=== PATIENT | male | born 1950 | race Caucasian/White ===

== ENCOUNTER 2018-01-16 19:47 | Inpatient (IN) ==
[2018-01-16] MEDS ORDERED: NS 1,000 ML IV ONE ×2 (20:06→23:16)
--- NOTE | 2018-01-16 20:10 | Emergency Department Report ---
General Adult HPI - General Chief complaint: Upper Respiratory Infection Stated complaint: breathing problems Time Seen by Provider: 01/16/18 20:00 Source: patient, EMS Mode of arrival: EMS Limitations: altered mental status - History of Present Illness HPI narrative: Mr Jacobs is a 68 year old male sent to ER from [place]. He is vague in describing why he is here. Report from EMS/nurses indicate fever, soa and cough. EMS reported temp of 102.3. He was saturating [facility] the [facility]s at the [facility]. He has hx COPD and wears o2 prn. Given an inhaled treatment at the [place]. Sats 88% on 02 in triage. Blood sugar 109 by EMS. At time of initial examination, patient is pleasant but confused. He screams out with staff interventions. Reevaluation done in the presence of patient's IRWIN Vasquez. Patient appears less confused and more appropriate. MD complaint: soa Onset (ago): day(s) (1) Relieving factors: none Exacerbating factors: none Associated symptoms: cough, fever/chills, shortness of breath Treatments prior to arrival: other (albuterol inhaler) - Related Data Home Medications Medication Instructions Recorded Confirmed Albuterol Sulfate 1 vial AEROSOL Q4H PRN #0 11/24/16 01/16/18 Acetaminophen [Pain Reliever] 500 mg PO Q6HR PRN 01/16/18 01/16/18 Acetaminophen [Tylenol] 1,000 mg PO Q6HR PRN 01/16/18 01/16/18 Albuterol HFA Inhaler [Ventolin 2 puff ORAL INH Q4HR PRN 01/16/18 01/16/18 Hfa 90 mcg/actuation] Aspirin [Pickaway Aspirin] 81 mg PO DAILY 01/16/18 01/16/18 Calcium Carbonate [Calcium] 1 tab PO BID 01/16/18 01/16/18 Citalopram [Celexa] 30 mg PO DAILY 01/16/18 01/16/18 Eucerin Cream [Eucerin] 1 applicatio TP BID PRN 01/16/18 01/16/18 Fluticasone/Salmeterol 250/50 1 puff INH BID PRN 01/16/18 01/16/18 [Advair 250-50 Diskus] Lisinopril [Prinivil] 10 mg PO DAILY 01/16/18 01/16/18 Loratadine [Claritin] 10 mg PO DAILY 01/16/18 01/16/18 Propylene Glycol [Lubricant Eye 1 drop EACH EYE Q4HR PRN 01/16/18 01/16/18 Drops] guaiFENesin [Mucinex] 600 mg PO BID 01/16/18 01/16/18 Allergies Allergy/AdvReac Type Severity Reaction Status Date / Time aspirin Allergy Unknown Verified 01/16/18 20:05 Review of Systems All systems: reviewed and negative except as stated Constitutional: Reports: fever ENT: Reports: congestion Cardiovascular: Denies: chest pain Respiratory: Reports: cough, dyspnea Gastrointestinal: Reports: nausea Integumentary: Reports: lesions (nasal) PFSH Patient Stated Medical History Dementia Yes Hypertension Yes - Social History Smoking status: Former smoker Substance use type: does not use Housing: [facility] Physical Exam - Limitations Limitations: altered mental status - General General appearance: alert, in distress (mild) - Head Head exam: atraumatic, normocephalic - Eye Eye exam: Present: normal appearance, PERRL. Absent: scleral icterus, conjunctival injection - ENT ENT exam: Present: mucous membranes dry - Expanded ENT Exam Nose exam: Present: other (chronic appearing lesions to nose) - Neck Neck exam: Present: normal inspection, full ROM - Chest Chest inspection: Present: normal inspection, symmetric chest wall rise - Respiratory Respiratory exam: Present: wheezes, crackles - Cardiovascular Cardiovascular exam: Present: tachycardia - Abdominal Exam Abdominal exam: Present: soft, normal bowel sounds. Absent: distention, tenderness, guarding, rebound, rigidity - Expanded Lower Extremity Exam bilateral Lower leg exam: Present: swelling - Skin Skin exam: Present: warm, dry - Neurological Exam Neurological exam: Present: alert - Expanded Neurological Exam Patient oriented to: Present: person, place - Psychiatric Psychiatric exam: Present: normal mood, other (some confusion) Course Course Narrative: NS 1 liter given initially. Looking at CXR noted some fluid in fissures. Will add BNP and decide if additional fluids necessary. Vanco 1 gm IV initiated. Call to Dr. Lovett for admit-he will place orders. - Consultations Consultation #1: Dr. Acosta Time: 22:32 (admit sepsis/hcap, add bnp and procal) Vital Signs Temperature 99.6 F 01/16/18 19:56 Pulse Rate 115 H 01/16/18 19:56 Respiratory Rate 20 01/16/18 19:56 Blood Pressure 134/67 01/16/18 19:56 Pulse Oximetry 93 01/16/18 19:56 Temperature 99.6 F 01/16/18 19:56 Pulse Rate 100 01/16/18 22:20 Respiratory Rate 20 01/16/18 22:20 Blood Pressure 123/59 01/16/18 22:20 Pulse Oximetry 91 01/16/18 22:20 Medical Decision Making - Differential Diagnosis HCAP, UTI, Influenza - Medical Records Medical records reviewed: Yes: I reviewed the patient's medical records. Hx COPD with chronic resp insufficiency, hx recent sepsis approx 1.5 mo ago admitted here. - Lab Data Result diagrams: 01/16/18 20:52 01/16/18 20:52 Lab Results 01/16/18 01/16/18 01/16/18 Range/Units 20:17 20:52 20:52 WBC 18.1 H (4.5-11.0) T/MM3 RBC 4.27 L (4.50-5.90) M/MM3 Hgb 13.3 L (13.5-17.5) GM/DL Hct 39.3 L (41-53) % MCV 92.0 (80-100) UM3 MCH 31.1 (26-34) UUG MCHC 33.8 (31-37) GM/DL RDW Std Deviation 47.2 (36.9-50.2) FL Plt Count 317 (130-400) T/MM3 MPV 9.6 (9.4-12.4) UM3 Immature Gran % (Auto) Not performed Neut % (Auto) Not performed Lymph % (Auto) Not performed [place] % (Auto) Not performed Eos % (Auto) Not performed Baso % (Auto) Not performed Neut # (Auto) Not performed Lymph # (Auto) Not performed [place] # (Auto) Not performed Eos # (Auto) Not performed Baso # (Auto) Not performed Abs Immat Gran (auto) Not performed Neutrophils % (Manual) 85.0 H (33-66) % Lymphocytes % (Manual) 8.0 L (23-45) % Monocytes % (Manual) 6.0 (0-9.0) % Eosinophils % (Manual) 1.0 (0-4) % Neutrophils # (Manual) 15.4 H (1.8-7.7) T/MM3 Lymphocytes # (Manual) 1.4 (1-4.8) T/MM3 Monocytes # (Manual) 1.1 H (0-0.8) T/MM3 Eosinophils # (Manual) 0.2 (0-0.5) T/MM3 RBC Morph Comment Normal Turbidity < 20 (0-20) Sodium 135 (134-144) MEQ/L Potassium 4.8 (3.6-5) MEQ/L Chloride 97 L (98-107) MEQ/L Carbon Dioxide 24 (22-30) MEQ/L Anion Gap 14 (5-15) MEQ/L BUN 16.0 (9-20) MG/DL Creatinine 1.3 (0.8-1.5) mg/dL GFR Calculation 55 BUN/Creatinine Ratio 12 (6-26) RATIO Glucose 130 H (75-110) MG/DL Calculated Osmolality 263 (261-280) MOSM/KG Calcium 9.4 (8.4-10.2) MG/DL Total Bilirubin 0.50 (0.20-1.30) MG/DL Icterus Index < 2 (0-7) AST 21 (17-59) U/L ALT 15 (1-50) U/L Alkaline Phosphatase 58 (38-126) U/L Total Protein 7.4 (6.3-8.2) g/dL Albumin 4.0 (3.5-5.0) g/dL Globulin 3.4 (2.4-3.6) G/DL Albumin/Globulin Ratio 1.2 (1.1-2.2) RATIO Plasma Lactate 2.4 H (0.6-2.2) MMOL/L Specimen Hemolysis < 15 (0-25) Ur Collection Type Urine Color (YELLOW) Urine Clarity Urine pH (5.0-8.0) Ur Specific [place] (1.015-1.025) Urine Protein (NEGATIVE) Urine Glucose (UA) (NEGATIVE) Urine Ketones (NEGATIVE) Urine Occult Blood (NEGATIVE) Urine Nitrate (NEGATIVE) Urine Bilirubin (NEGATIVE) Urine Urobilinogen (NORMAL) EU/DL Ur Leukocyte Esterase (NEGATIVE) Urinalysis Comment Adenovirus (PCR) Negative (Negative) B.parapertussis DNA PCR Negative (Negative) C. pneumoniae DNA (PCR) Negative (Negative) Coronavirus OC43 (PCR) Negative (Negative) Coronavirus HKU1 (PCR) Negative (Negative) Coronavirus 229E (PCR) Negative (Negative) Coronavirus NL63 (PCR) Negative (Negative) Human Metapneumovir PCR Negative (Negative) Influenza Type A (PCR) Negative (Negative) Influenza Type B (PCR) Negative (Negative) M. pneumoniae (PCR) Negative (Negative) Parainfluenza 1 (PCR) Negative (Negative) Parainfluenza 2 (PCR) Negative (Negative) Parainfluenza 3 (PCR) Negative (Negative) Parainfluenza 4 (PCR) Negative (Negative) RSV (PCR) Negative (Negative) Entero/Rhino (PCR) Negative (Negative) 01/16/18 Range/Units 22:31 WBC (4.5-11.0) T/MM3 RBC (4.50-5.90) M/MM3 Hgb (13.5-17.5) GM/DL Hct (41-53) % MCV (80-100) UM3 MCH (26-34) UUG MCHC (31-37) GM/DL RDW Std Deviation (36.9-50.2) FL Plt Count (130-400) T/MM3 MPV (9.4-12.4) UM3 Immature Gran % (Auto) Neut % (Auto) Lymph % (Auto) [place] % (Auto) Eos % (Auto) Baso % (Auto) Neut # (Auto) Lymph # (Auto) [place] # (Auto) Eos # (Auto) Baso # (Auto) Abs Immat Gran (auto) Neutrophils % (Manual) (33-66) % Lymphocytes % (Manual) (23-45) % Monocytes % (Manual) (0-9.0) % Eosinophils % (Manual) (0-4) % Neutrophils # (Manual) (1.8-7.7) T/MM3 Lymphocytes # (Manual) (1-4.8) T/MM3 Monocytes # (Manual) (0-0.8) T/MM3 Eosinophils # (Manual) (0-0.5) T/MM3 RBC Morph Comment Turbidity (0-20) Sodium (134-144) MEQ/L Potassium (3.6-5) MEQ/L Chloride (98-107) MEQ/L Carbon Dioxide (22-30) MEQ/L Anion Gap (5-15) MEQ/L BUN (9-20) MG/DL Creatinine (0.8-1.5) mg/dL GFR Calculation BUN/Creatinine Ratio (6-26) RATIO Glucose (75-110) MG/DL Calculated Osmolality (261-280) MOSM/KG Calcium (8.4-10.2) MG/DL Total Bilirubin (0.20-1.30) MG/DL Icterus Index (0-7) AST (17-59) U/L ALT (1-50) U/L Alkaline Phosphatase (38-126) U/L Total Protein (6.3-8.2) g/dL Albumin (3.5-5.0) g/dL Globulin (2.4-3.6) G/DL Albumin/Globulin Ratio (1.1-2.2) RATIO Plasma Lactate (0.6-2.2) MMOL/L Specimen Hemolysis (0-25) Ur Collection Type Urine, void-cc/notcc Urine Color Yellow (YELLOW) Urine Clarity Clear Urine pH 6.0 (5.0-8.0) Ur Specific [place] 1.015 (1.015-1.025) Urine Protein Negative (NEGATIVE) Urine Glucose (UA) Negative (NEGATIVE) Urine Ketones Trace A (NEGATIVE) Urine Occult Blood Trace-lysed (NEGATIVE) Urine Nitrate Negative (NEGATIVE) Urine Bilirubin Negative (NEGATIVE) Urine Urobilinogen 0.2 (NORMAL) EU/DL Ur Leukocyte Esterase Negative (NEGATIVE) Urinalysis Comment Microscopic not ind. Adenovirus (PCR) (Negative) B.parapertussis DNA PCR (Negative) C. pneumoniae DNA (PCR) (Negative) Coronavirus OC43 (PCR) (Negative) Coronavirus HKU1 (PCR) (Negative) Coronavirus 229E (PCR) (Negative) Coronavirus NL63 (PCR) (Negative) Human Metapneumovir PCR (Negative) Influenza Type A (PCR) (Negative) Influenza Type B (PCR) (Negative) M. pneumoniae (PCR) (Negative) Parainfluenza 1 (PCR) (Negative) Parainfluenza 2 (PCR) (Negative) Parainfluenza 3 (PCR) (Negative) Parainfluenza 4 (PCR) (Negative) RSV (PCR) (Negative) Entero/Rhino (PCR) (Negative) - Radiology Data Radiology results reviewed: Yes: I reviewed the patient's radiology results. bilateral pulmonary infiltrates Disposition Clinical Impression: HCAP (healthcare-associated pneumonia), Sepsis [place]position: 02 [place] [facility] [place] Condition: Stable Prescriptions: No Action Albuterol HFA Inhaler [Ventolin Hfa 90 mcg/actuation] 2 puff ORAL INH Q4HR PRN PRN Reason: Shortness Of Air/Wheezing Loratadine [Claritin] 10 mg PO DAILY Lisinopril [Prinivil] 10 mg PO DAILY Aspirin [Pickaway Aspirin] 81 mg PO DAILY Fluticasone/Salmeterol 250/50 [Advair 250-50 Diskus] 1 puff INH BID PRN PRN Reason: Shortness Of Air/Wheezing Calcium Carbonate [Calcium] 1 tab PO BID Eucerin Cream [Eucerin] 1 applicatio TP BID PRN PRN Reason: Prn Orders guaiFENesin [Mucinex] 600 mg PO BID Acetaminophen [Tylenol] 1,000 mg PO Q6HR PRN PRN Reason: Pain Albuterol Sulfate 1 vial AEROSOL Q4H PRN #0 PRN Reason: Shortness Of Air Citalopram [Celexa] 30 mg PO DAILY Acetaminophen [Pain Reliever] 500 mg PO Q6HR PRN PRN Reason: Pain Propylene Glycol [Lubricant Eye Drops] 1 drop EACH EYE Q4HR PRN PRN Reason: Dry Eyes Referrals: Obi Kapoor MD [Family Provider] - - Seen By: midlevel
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
--- OUTSIDE RECORDS SUMMARY | 2018-01-16 20:20 | External Medical Summary | Referral Summary ---
:1950 Author Organization [facility] [address] [place] [address] Care Team Providers Name Role Phone Obi Kapoor Primary Care Physician Encounter VC Date(s): 12/20/16 - 12/20/16 [facility] [address] [place] [address] [place] Discharge Diagnosis: Pneumonia Discharge Diagnosis: COPD, severe Discharge Disposition: 01-Home or Self Care Attending Physician: Obi Kapoor MD Admitting Physician: Obi Kapoor MD Vital Signs Most recent to oldest [Reference Range]: 1 Peripheral Pulse Rate [60-100 bpm] 88 bpm (12/20/16 10:49 AM) Respiratory Rate [14-20 br/min] 18 br/min (12/20/16 10:49 AM) Blood Pressure [90-140/60-90 mmHg] 100/64 mmHg (12/20/16 10:49 AM) SpO2 92 % (12/20/16 10:49 AM) Problem List Condition Effective Dates Status Health Status Informant Anemia(Confirmed) Active History of alcohol Active dependence(Confirmed) Impaired gas exchange(Confirmed)1 Resolved Ineffective airway Resolved clearance(Confirmed)2 Irregular heart beat(Confirmed) Active Obesity(Confirmed) Active patient COPD, severe(Confirmed) Active Tobacco user(Confirmed) Active patient 1Problem added automatically by system based on initiation of Impaired Gas Exchange Plan of [id number] added automatically by system based on initiation of Ineffective Airway Clearance Plan of Care Allergies, Adverse Reactions, Alerts Substance Reaction Severity Status aspirin Active Medications Advair Diskus 250 mcg-50 mcg inhalation powder 1 puffs, Inhalation, BID, # 60 Each, 0 Refill(s), other reason (Rx) Start Date: 11/12/14 Status: Orderedalbuterol 1.25 mg/3 mL (0.042%) inhalation solution 1.25 mg 3 mL, NEB, q4hr, as needed, # 540 mL, 0 Refill(s), Pharmacy: [facility], 3 mL NEB q4hr,PRN:as needed Start Date: 11/28/16 Status: Orderedaspirin 81 mg, Oral, Daily, 0 Refill(s) Start Date: 12/20/16 Status: Orderedcalcium carbonate See Instructions, 500 mg Oral BID, 0 Refill(s) Start Date: 07/06/15 Status: Orderedcitalopram 20 mg oral tablet 20 mg 1 tabs, Oral, Daily, # 90 tabs, 0 Refill(s) Start Date: 03/10/16 Status: OrderedClaritin 10 mg oral tablet 10 mg 1 tabs, Oral, Daily, as needed for allergy symptoms, 0 Refill(s) Start Date: 03/10/16 Status: OrderedMucinex 600 mg, Oral, q12hr, as needed for cold symptoms, 0 Refill(s) Start Date: 07/13/16 Status: OrderedPrinivil 10 mg, Oral, Daily, 0 Refill(s) Start Date: 12/20/16 Status: OrderedRefresh drops, Eye-Both, BID, as needed for dry eyes, 0 Refill(s) Start Date: 03/10/16 Status: OrderedSudoGest 30 mg oral tablet 30 mg 1 tabs, Oral, Daily, FAX TO SAMY DENYS @ ., # 31 tabs , 3 Refill(s) Start Date: 09/18/16 Status: OrderedTAO - topical ointment ANGEL LUIS - topical ointment, Topical, BID, 0 Refill(s), Indication: lesion - nose Start Date: 10/02/16 Status: Orderedthiamine 100 mg oral tablet mg tabs, Oral, Daily, 0 Refill(s) Start Date: 03/10/16 Status: OrderedTylenol Regular Strength 325 mg, Oral, q4hr, as needed for pain, 0 Refill(s) Start Date: 03/10/16 Status: OrderedVentolin HFA 90 mcg/inh inhalation aerosol 2 puffs, Inhalation, q4hr, as needed for wheezing, # 18 g, 0 Refill(s), other reason (Rx) Start Date: 11/12/14 Status: Ordered Results No data available for this section Immunizations No data available for this section Procedures Procedure Date Related Diagnosis Body Site Excision of multiple skin lesions1 02/10/15 Excision of squamous cell carcinoma2 02/10/15 Full thickness skin graft to head or neck3 02/10/15 Hernia, inguinal 1Actinic keratosis dorsum left hand with primary [id number] side of the nose, dorsum of the right hand.3To left side of the nose after excision squamous cell carcinoma. Social History Social History Type Response Smoking Status Former smoker; Type: Cigarettes; Tobacco use per day: Pack; Number of years: 501 1DC: Assessment and Plan Extracted from: Title: Office Visit Note Author: Obi Kapoor MD Date: 12/20/16 Assessment/Plan 1.Pneumonia,Pneumonia Repeat chest x-ray today looks good no signs of residual pneumonia or other abnormalities. No further treatment needed. 2.COPD, severe Continue current treatment without change overall stable. Routine follow -up recommended.
--- OUTSIDE RECORDS SUMMARY | 2018-01-16 20:20 | External Medical Summary ---
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
--- OUTSIDE RECORDS SUMMARY | 2018-01-16 20:20 | External Medical Summary ---
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 Active Assessment Essential hypertension, benign 401.1 Active Problem Essential hypertension, benign 401.1 Active Problem COPD 496 Active Assessment 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, in remission Assessment Lichen planus 697.0 Active Assessment Unspecified deficiency anemia 281.9 Active Medications Medication Code Code Instructions Start End Status Dosage [place] [address]-32 108 (90 Base) Active 2 puffs as 82-20 MCG/ACT needed Inhalation every 4 hrs Stool Softener NDC 11822-94 100 MG Orally Active 1 capsule as 86-72 Once a day needed Furosemide NDC 71537-72 20 MG Orally April 22April Active 1 tablet 97-25 Twice a [place] 2012 [place] [address]-63 (2.5 MG/3ML) Active 3 ml Sulfate 90-52 0.083% Inhalation QID Advair Diskus NDC 55095-94 200/50 mcg Active 1 puff 97-00 Inhalation Twice a day Tylenol NDC 90493-08 Orally Active not defined Atenolol NDC 45530-38 25 MG Orally Active 1 tablet 87-01 Once a day Clobetasol NDC 24898-89 0.05 % Nov 28, Active 1 application Propionate 50-15 Externally Twice 2013 to affected a day area Pepto-Bismol NDC 89925-78 Orally Active prn 904 Procedures Procedure Coding System Code Date COMPREHENSIVE METABOLIC PANEL CPT-4 86774 Oct 26, 2014 HEMOGLOBIN A1C, IN HOUSE CPT-4 75000 Oct 26, 2014 COMPLETE CBC W/AUTO DIFF WBC CPT-4 85566 Oct 26, 2014 OFFICE VISIT, EST-MOD. COMPLEXITY (25 MIN) CPT-4 36441 Oct 26, 2014 URINALYSIS, IN HOUSE CPT-4 86524 Oct 26, 2014 Vital Signs Date/Time: Oct 26, 2014 Height 68 inches Weight 189.8 lbs Temperature 98.2 F Blood Pressure Diastolic 70 mm Hg Blood Pressure Systolic 128 mm Hg Cardiac Monitoring Heart Rate 74 Beats per Minute BMI 28.86 Index Oximetry 90 % Results Name Result Date Reference Range Unit In House HB A1c CBC With Platelet and Differential Summary Purpose eClinicalWorks Submission
--- OUTSIDE RECORDS SUMMARY | 2018-01-16 20:21 | External Medical Summary ---
[...] Problem COPD 496 Active Medications Medication Code System Code Instructions Start End Date Status Dosage Date Ventolin HFA [facility] 74948-953 108 (90 Base) 2 puffs as 2-20 MCG/ACT needed Inhalation every 4 [place] [address] 200/50 mcg 1 puff 5-00 Inhalation Twice a day Albuterol [facility] 25219-906 (2.5 MG/3ML) 3 ml Sulfate 0-52 0.083% Inhalation QID Procedures Procedure Coding System Code Date [facility] visit Established Patient CPT-4 G0467 January 06, 2015 [facility] visit Established Patient CPT-4 G0467 January 06, 2015 [facility] visit New Patient CPT-4 G0466 January 06, 2015 OFFICE VISIT, EST-MOD. COMPLEXITY (25 MIN) CPT-4 12216 January 06, 2015 Vital Signs Date/Time: January 06, 2015 Height 68 in Weight 181.0 lbs Temperature 97.7 F Blood Pressure Diastolic 76 mm Hg Blood Pressure Systolic 138 mm Hg Cardiac Monitoring Heart Rate 84 /min BMI 27.52 Index Respiratory Rate 28 /min Results No Known Results Summary Purpose eClinicalWorks Submission
[2018-01-16] MEDS ORDERED: ALBUTEROL/IPRATROPIUM 2.5mg-0.5mg/3ml NEB AEROSOL ONE (20:39)
[2018-01-16] MEDS: SALINE FLUSH 10ml SYRINGE IVF PRN (22:43)
[2018-01-16] MEDS ORDERED: ACETAMINOPHEN 325 MG TABLET PO PRN (23:32)
[2018-01-16] MEDS ORDERED: SENNA + DOCUSATE TABLET PO PRN (23:37)
[2018-01-16] MEDS ORDERED: ONDANSETRON 4 MG/2 ML INJECTION IVP PRN (23:37)
[2018-01-16] MEDS ORDERED: HYDROCODONE/APAP 5mg/325mg TABLET PO PRN (23:37)
[2018-01-16] MEDS ORDERED: REFRESH CLASSIC Eye Drops 0.4ml EACH EYE PRN (23:43)
[2018-01-16] MEDS ORDERED: ALBUTEROL 2.5mg/3ml (0.083%) NEB AEROSOL PRN (23:43)
[2018-01-16 23:57] VITALS: BMI 35.3
[2018-01-17] MEDS ORDERED: FALL RISK - PHARMACY CONSULT MC ONE (00:13)
[2018-01-17] MEDS ORDERED: ALBUTEROL 2.5mg/0.5ml (0.5%) NEB AEROSOL PRN (00:40)
[2018-01-17] MEDS ORDERED: ZOLPIDEM 5 MG TABLET PO PRN (01:28)
[2018-01-17] MEDS ORDERED: HALOPERIDOL 1 MG TABLET PO PRN (02:53)
--- NOTE | 2018-01-17 02:58 | History & Physical Report ---
History of Present Illness Date: 01/17/18 Chief complaint: Decreased appitite HPI: The pt is a resident at [facility] who was brought to the ER for hypoxia. The pt is pleasant and coroperative and states he doesn't know why he is in the hospital other that he didn't have an appetite today. He denies any SOB, cough, fevers, chills, N'V. pain. Review of Systems - Constitutional Constitutional: Present: as per HPI. Absent: chills, fever(s) - Cardiovascular Cardiovascular: Absent: chest pain - Respiratory Respiratory: Absent: cough, dyspnea - Gastrointestinal Gastrointestinal: Absent: nausea, vomiting Past Medical History Patient Stated Medical History Dementia Yes Hypertension Yes Family History Updates: none - Social History Smoking status: Former smoker Substance use type: does not use Alcohol intake: former Household members: caregiver Medications Home Medications Medication Instructions Recorded Confirmed Type Albuterol Sulfate 1 vial AEROSOL Q4H PRN #0 11/24/16 01/16/18 History Acetaminophen [Pain Reliever] 500 mg PO Q6HR PRN 01/16/18 01/16/18 History Acetaminophen [Tylenol] 1,000 mg PO Q6HR PRN 01/16/18 01/16/18 History Albuterol HFA Inhaler [Ventolin 2 puff ORAL INH Q4HR PRN 01/16/18 01/16/18 History Hfa 90 mcg/actuation] Aspirin [[place] Aspirin] 81 mg PO DAILY 01/16/18 01/16/18 History Calcium Carbonate [Calcium] 1 tab PO BID 01/16/18 01/16/18 History Citalopram [Celexa] 30 mg PO DAILY 01/16/18 01/16/18 History Eucerin Cream [Eucerin] 1 applicatio TP BID PRN 01/16/18 01/16/18 History Fluticasone/Salmeterol 250/50 1 puff INH BID PRN 01/16/18 01/16/18 History [Advair 250-50 Diskus] Lisinopril [Prinivil] 10 mg PO DAILY 01/16/18 01/16/18 History Loratadine [Claritin] 10 mg PO DAILY 01/16/18 01/16/18 History Propylene Glycol [Lubricant Eye 1 drop EACH EYE Q4HR PRN 01/16/18 01/16/18 History Drops] guaiFENesin [Mucinex] 600 mg PO BID 01/16/18 01/16/18 History Allergies Allergy/AdvReac Type Severity Reaction Status Date / Time aspirin Allergy Unknown Verified 01/16/18 20:05 Exam Vital Signs: Temperature 99.6 F 01/17/18 00:26 Pulse Rate 115 H 01/17/18 00:26 Respiratory Rate 24 01/17/18 02:03 Blood Pressure 139/67 01/16/18 23:58 Pulse Oximetry 96 01/17/18 02:03 Height/Weight/BMI: Height 1.7 m Weight 102.4 kg Body Mass Index 35.3 - Constitutional Present: no acute distress, obese - Routine HEENT Exam Head: Present: normocephalic - Routine Neck Exam Present: supple - Routine Respiratory Exam Present: CTA bilaterally - Routine Cardiovascular Exam Present: RRR, no murmur - Routine Abdominal Exam Present: soft, normoactive bowel sounds, non distended, non tender - Routine Extremities Exam Present: no edema Results - Labs CBC & Chem 7: 01/16/18 20:52 01/16/18 20:52 Assessment and Plan (1) Dementia arising in the senium and presenium Current visit: Yes Status: Acute (2) COPD (chronic obstructive pulmonary disease) Current visit: Yes Status: Acute (3) HCAP (healthcare-associated pneumonia) Current visit: Yes Status: Acute (4) Sepsis Current visit: Yes Status: Acute Assessment and Plan: will start the pt on empiric coverage for HCAP 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 zosyn, vanco, levoquin, breathing tx, cont home oxygen which is 2 llplm NC, monitor for fluid overload, hold diruretic, recheck LA, high risk for delirium - Physician Narrative Narrative: Date: 01/17/18 Time: 0255 Hospital Course Summary Disclaimer: The visit summary below is not to be considered part of the above Progress Note.
[2018-01-17] MEDS ORDERED: VANCOMYCIN - PHARMACY CONSULT MC ONE (02:59)
[2018-01-17] MEDS ORDERED: LEVOFLOXACIN PB 750 MG/150 ML BAG IV SCH (02:59)
[2018-01-17] MEDS ORDERED: PIPERACILLIN/TAZOBACTAM 3.375 GM in NS 100 ML IV SCH (02:59)
[2018-01-17] MEDS: NS FLUSH BAG 500ml IV PRN (03:22)
[2018-01-17] MEDS ORDERED: ALBUTEROL 2.5mg/3ml (0.083%) NEB AEROSOL PRN (06:45)
--- NOTE | 2018-01-17 07:33 | Pharmacy Consult-Antibiotics ---
Pharmacy Consult-Vancomycin - Laboratory Information WBC 26.1 T/MM3 (4.5-11.0) H* D 01/17/18 04:10 BUN 15.0 MG/DL (9-20) 01/17/18 04:10 Creatinine 1.1 mg/dL (0.8-1.5) D 01/17/18 04:10 Procalcitonin < 0.05 NG/ML 01/16/18 20:52 - Consult Information VANCOMYCIN CONSULT: Dx: Pneumonia JOANNA, 68 yo male, is a resident at [facility] who was brought to the ER for hypoxia. The pt is pleasant and coroperative and states he doesn't know why he is in the hospital other that he didn't have an appetite today. He denies any SOB, cough, fevers, chills, N'V. pain. His admitting diagnoses are HCAP and Sepsis. He has been started on Zosyn 3.375 g iv every 6 hours, Levaquin 750 mg iv every 24 hours, and Vancomycin. Current Renal Function: S Cr = 1.1 mg/dl. Calculated Cr Cl = 69mL/min. WBC's = 26.1 T/mm3 Lactate = 2.8 mmol/L @$-h Tmax = 99.4 degrees F The patient was given Vancomycin 1 g iv in the ED @ 2230 (01/16). I will continue Vancomycin @ 1,250 mg IV q12hrs (). The Pharmacy will continue to monitor and adjust regimen to maintain therapeutic levels. Thank you for the Vancomycin Dosing Consult, Eric Astudillo, Pharmacist. .
--- NOTE | 2018-01-17 08:05 | XRay Report ---
INDICATION: soa, fever PROCEDURE: CHEST 2-VIEWS UPRIGHT (PA & LAT) Encounter: Initial COMPARISON: November 24, 2016 FINDINGS: Hazy airspace opacities in both lower lobes, right greater than left. Upper lung ta are clear. No pleural effusion or pneumothorax. Heart size and mediastinal contours are stable. Pulmonary vascularity is normal. Impression: Lower lobe airspace disease could represent atelectasis or pneumonia. .
[2018-01-17] MEDS: GUAIFENESIN LA 600 MG TABLET PO SCH ×2 (09:27→20:10)
[2018-01-17] MEDS: CITALOPRAM 10 MG TABLET PO SCH (09:27)
[2018-01-17] MEDS: LISINOPRIL 10 MG TABLET PO SCH (09:27)
[2018-01-17] MEDS: ASPIRIN *EC* 81 MG TABLET PO SCH (09:28)
--- NOTE | 2018-01-17 09:28 | XRay Report ---
INDICATION: r/o pna/abnormal cxr 01/16 PROCEDURE: CHEST 2-VIEWS UPRIGHT (PA & LAT) Encounter: Initial COMPARISON: January 16, 2018 FINDINGS: Worsening airspace consolidation in the right lower lobe. Right upper lobe appears clear. Increased interstitial markings in the left base are stable and appear chronic. No pneumothorax or effusion. Heart size, mediastinal contours and pulmonary vascularity are stable. Impression: Worsening right lower lobe pneumonia. .
--- NOTE | 2018-01-17 09:49 | History & Physical Report ---
History of Present Illness Date: 01/17/18 HPI: Patient is a 68 year old male with history of COPD who presented to ED with reports of cough and shortness of breath with hypoxia. He has a history of dementia and history is difficult to obtain from patient. He does know that he lives at [facility] and that he felt ill. He states he felt very run down and like he didn't have any energy. History is largely obtained from chart as patient does not recall why exactly he is here other than not feeling well. Review of Systems Review of systems: Patient denies 10 point ROS other than feeling like he has no energy. However patient is confused this morning and is a poor historian. Past Medical History Patient Stated Medical History Dementia Yes Hypertension Yes Surgical History: unknown Family History Updates: Unknown-patient unable to give history - Social History Smoking status: Former smoker Social history: lives in [place] Medications Home Medications Medication Instructions Recorded Confirmed Type Albuterol Sulfate 1 vial AEROSOL Q4H PRN #0 11/24/16 01/16/18 History Acetaminophen [Pain Reliever] 500 mg PO Q6HR PRN 01/16/18 01/16/18 History Acetaminophen [Tylenol] 1,000 mg PO Q6HR PRN 01/16/18 01/16/18 History Albuterol HFA Inhaler [Ventolin 2 puff ORAL INH Q4HR PRN 01/16/18 01/16/18 History Hfa 90 mcg/actuation] Aspirin [Pisinemo Aspirin] 81 mg PO DAILY 01/16/18 01/16/18 History Calcium Carbonate [Calcium] 1 tab PO BID 01/16/18 01/16/18 History Citalopram [Celexa] 30 mg PO DAILY 01/16/18 01/16/18 History Eucerin Cream [Eucerin] 1 applicatio TP BID PRN 01/16/18 01/16/18 History Fluticasone/Salmeterol 250/50 1 puff INH BID PRN 01/16/18 01/16/18 History [Advair 250-50 Diskus] Lisinopril [Prinivil] 10 mg PO DAILY 01/16/18 01/16/18 History Loratadine [Claritin] 10 mg PO DAILY 01/16/18 01/16/18 History Propylene Glycol [Lubricant Eye 1 drop EACH EYE Q4HR PRN 01/16/18 01/16/18 History Drops] guaiFENesin [Mucinex] 600 mg PO BID 01/16/18 01/16/18 History Allergies Allergy/AdvReac Type Severity Reaction Status Date / Time aspirin Allergy Unknown Verified 01/16/18 20:05 Exam Vital Signs: Temperature 98.2 F 01/17/18 07:52 Pulse Rate 78 01/17/18 07:52 Respiratory Rate 18 01/17/18 07:52 Blood Pressure 106/67 01/17/18 07:52 Pulse Oximetry 91 01/17/18 07:52 Telemetry Rhythm: Sinus Rhythm Height/Weight/BMI: Height 5 ft 7 in Weight 100.8 kg Body Mass Index 35.3 - Constitutional Present: no acute distress, obese - Routine HEENT Exam Head: Present: normocephalic, atraumatic Eye: Present: EOMI, conjunctivae pink ENT: Present: mucous membranes moist - Routine Neck Exam Present: supple. Absent: JVD - Routine Chest/Breast/Axilla Exam Chest wall: Absent: tenderness - Routine Respiratory Exam Present: wheezes, diminished air movement. Absent: accessory muscle use - Routine Cardiovascular Exam Present: RRR, no murmur - Routine Abdominal Exam Present: soft, normoactive bowel sounds, non distended, non tender - Routine Extremities Exam Present: edema Comments: 1-2+ BLE - Routine Skin Exam Present: intact, dry, warm - Routine Neurological Exam Present: CN II-XII intact oriented to self and place, not oriented to time - Routine Psychiatric Exam Present: normal affect. Absent: anxious Results - Labs CBC & Chem 7: 01/17/18 04:10 01/17/18 04:10 Assessment and Plan (1) HCAP (healthcare-associated pneumonia) Current visit: Yes Status: Acute (2) Sepsis Current visit: Yes Status: Acute (3) Dementia arising in the senium and presenium Current visit: Yes Status: Acute (4) COPD (chronic obstructive pulmonary disease) Current visit: Yes Status: Acute Assessment and Plan: Assessment Sepsis 2/2 pneumonia-lactate elevated, leukocytosis RLL Pneumonia COPD exacerbation Dementia History of HTN Plan De escalate abx to 2 abx Obtain sputum culture Repeat CXR Trend lactate Begin steroids Repeat labs in am (CBC, electrolytes and procalc) RT consult Breathing treatments Continue oxygen as needed to maintain sats >90 Monitor BP closely, may need to hold lisinopril Speech therapy consult to rule out concerns for aspiration - Physician Narrative Narrative: Date: 01/17/18 Time: 09 Hospital Course Summary Disclaimer: The visit summary below is not to be considered part of the above Progress Note.
[2018-01-17] MEDS: PIPERACILLIN/TAZOBACTAM 3.375 GM in NS 50 ML IV SCH ×3 (09:51→22:16)
[2018-01-17] MEDS: PredniSONE 20 MG TABLET PO SCH (10:24)
[2018-01-18] MEDS: PIPERACILLIN/TAZOBACTAM 3.375 GM in NS 50 ML IV SCH ×4 (04:19→22:22)
[2018-01-18] MEDS: LORATADINE 10 MG TABLET PO SCH (06:23)
[2018-01-18] MEDS: GUAIFENESIN LA 600 MG TABLET PO SCH ×2 (08:57→20:52)
[2018-01-18] MEDS: LISINOPRIL 10 MG TABLET PO SCH (08:57)
[2018-01-18] MEDS: ASPIRIN *EC* 81 MG TABLET PO SCH (08:57)
[2018-01-18] MEDS: PredniSONE 20 MG TABLET PO SCH (08:57)
[2018-01-18] MEDS: CITALOPRAM 10 MG TABLET PO SCH (08:57)
[2018-01-18] MEDS ORDERED: ENOXAPARIN - PHARMACY CONSULT MC ONE (09:35)
--- NOTE | 2018-01-18 10:05 | Pharmacy Consult ---
Pharmacy Consult-Lovenox - Laboratory Information ENOXAPARIN CONSULT: Today's SCr = 1.1 mg/dl. Calculated CrCl = 70 mL/min. A consult was ordered for DVT prophylaxis using enoxaparin. Deep venous thrombosis, In patients with restricted mobility from acute illness ; Prophylaxis 40 mg subQ once daily for up to 14 days ([employer]). I am ordering enoxaparin 40 mg sq daily. Thanks for the Consult, Eric Astudillo, Pharmacist.
--- NOTE | 2018-01-18 11:00 | Progress Note ---
- Date 01/18/18 Subjective: F/U: sepsis secondary to pneumonia, COPD exacerbation, dementia. Mr. Jacobs is seen this morning while resting in bed. He is awake and denies any complaints or concerns. No chest pain, shortness of breath, abdominal pain , nausea, vomiting or dysuria. Nursing reports that overall, he has been doing well. His appetite is fair. No BM since admission. Leukocytosis improving ( WBC 19.8, down from 26.1). BMP unremarkable. Breathing stable at his baseline of 2-3L oxygen. Blood cultures remain negative x 1 day. Speech recommended further evaluation of questionable dysphagia with modified barium swallow which is pending. On exam, he is noted to have some increased swelling and redness to his left lower extremity as compared to his right. US doppler pending. Objective Vital signs: Temperature 97.5 F 01/18/18 00:00 Pulse Rate 64 01/18/18 08:52 Respiratory Rate 16 01/18/18 08:52 Blood Pressure 119/67 01/18/18 08:52 Pulse Oximetry 96 01/18/18 08:52 Height/Weight/BMI: Height 5 ft 7 in Weight 222 lb 3.615 oz Body Mass Index 35.3 Comments: Resting in bed, breathing easily on baseline 2L NC. - Constitutional Present: no acute distress, well nourished, well developed, obese, cooperative - Routine HEENT Exam Head: Present: normocephalic, atraumatic Eye: Present: PERRL. Absent: conjunctival icterus ENT: Present: mucous membranes moist, oropharynx clear - Routine Respiratory Exam Present: wheezes. Absent: accessory muscle use, respiratory distress Comments: Course breath sounds with bilateral wheezing on exam; no cough or conversational dyspnea; currently on 2L NC. - Routine Cardiovascular Exam Present: RRR, S1, S2 - Routine Abdominal Exam Present: soft, normoactive bowel sounds, non distended, non tender - Routine Extremities Exam Present: full ROM, pulses intact Comments: Left lower extremity swelling > right with anterior diffuse erythema and warmth bilaterally. - Routine Back/Spine/Pelvis Exam Back/Spine: Present: full ROM. Absent: vertebral tenderness - Routine Musculoskeletal Exam Musculoskeletal: Present: moving extremities well - Routine Skin Exam Present: dry, warm. Absent: jaundice Comments: Afebrile. - Routine Neurological Exam Present: alert, moving all extremities, hearing grossly intact, normal speech - Routine Lymphatic Exam Lymphatic: Absent: lymphedema - Routine Psychiatric Exam Present: cooperative Results - Labs CBC & Chem 7: 01/18/18 04:58 01/18/18 04:59 Assessment and Plan (1) HCAP (healthcare-associated pneumonia) Current visit: Yes Status: Acute (2) Sepsis Current visit: Yes Status: Acute (3) Dementia arising in the senium and presenium Current visit: Yes Status: Chronic (4) COPD (chronic obstructive pulmonary disease) Current visit: Yes Status: Acute Assessment and Plan: Assessment Sepsis secondary to pneumonia as indicated by: tachycardia, tachypnea, leukocytosis. RLL Pneumonia, present on admission. COPD exacerbation, present on admission. Dementia. History of HTN. Plan - 01/18/18: Continue antibiotics (levaquin, zosyn and vancomycin) - started 01/17/18. Blood cultures negative x 1 day. De-escalate antibiotics as able. Obtain sputum culture as able. Lactate trended down (2.8, 2.0, 0.9). Continue prednisone 40mg daily for pulmonary inflammation and COPD exacerbation. Continue DuoNeb, albuterol and mucinex for cough/dyspnea. Continue oxygen as needed to maintain sats >90. Home baseline 2-3L. Continue to monitor blood pressure closely. Speech recommended modified barium swallow to further assess for dysphagia - pending. Obtain doppler of left lower extremity due to increased swelling/pain - pending. Recheck labs in AM to monitor blood counts, electrolytes and renal function. Lovenox initiated for DVT prophylaxis as well as SCDs. DVT Prophylaxis: SCD's, Lovenox Resuscitation Status: Full Code - Time spent with patient Time with patient PN: 30 minutes - Physician Narrative Physician: other (Dr. Frederick) Narrative: Date: 01/18/18 Time: 1259 Patient seen and examined independently. Directed plan of care. Agree with the above documentation with the following additions/changes: Patient reports he is feeling well today, he feels much better than he did yesterday. Patient is on Vanc and Zosyn only. Concern for aspiration due to RLL pneumonia in patient with dementia. Speech recs swallow study. Scattered wheezes on exam. Plan: swallow study, will continue to trend labs, will de escalate abx therapy after blood culture resulted at 48 hours. Continue steroids. Hospital Course Summary Disclaimer: The visit summary below is not to be considered part of the above Progress Note. Hospital Course: Plan - 01/18/18: Continue antibiotics (levaquin, zosyn and vancomycin) - started 01/17/18. Blood cultures negative x 1 day. De-escalate antibiotics as able. Obtain sputum culture as able. Lactate trended down (2.8, 2.0, 0.9). Continue prednisone 40mg daily for pulmonary inflammation and COPD exacerbation. Continue DuoNeb, albuterol and mucinex for cough/dyspnea. Continue oxygen as needed to maintain sats >90. Home baseline 2-3L. Continue to monitor blood pressure closely. Speech recommended modified barium swallow to further assess for dysphagia - pending. Obtain doppler of left lower extremity due to increased swelling/pain - pending. Recheck labs in AM to monitor blood counts, electrolytes and renal function. Lovenox initiated for DVT prophylaxis as well as SCDs.
[2018-01-18] MEDS: ENOXAPARIN 40 MG/0.4 ML INJECTION SQ SCH (11:01)
--- NOTE | 2018-01-18 11:03 | Ultrasound Report ---
Indication: leg swelling/pain PROCEDURE: US venous doppler LE LT: Encounter: Initial Comparison: None Technique: Color Doppler duplex and grayscale sonographic imaging of the left lower extremity was performed. Findings: There is no evidence for acute deep venous thrombosis in the left thigh. Specifically, serial graded compression was performed from the inguinal ligament to the popliteal bifurcation, on the left thigh, demonstrating appropriate compressibility of the deep venous system. In addition, color and pulsed Doppler demonstrate appropriate spontaneous flow, variation with respiration, and augmentation with calf compression. At the ankle, normal flow is identified in the posterior tibial veins; these vessels are also normal in caliber. Impression: No evidence of acute DVT in the left lower limb. .
[2018-01-18] MEDS: SALINE FLUSH 10ml SYRINGE IVF PRN (14:52)
--- NOTE | 2018-01-18 15:31 | Fluoroscopy Report ---
Indication:dysphagia Procedure:FL barium swallow modified MODIFIED BAR. SWALLOW STUDY: Videofluoroscopy was performed in conjunction with a parts representative from speech pathology and a separate report and recommendations will be provided. Varying gradations of barium from thin to solid were administered. There was no aspiration noted with any of the consistencies. On the AP view the bolus showed no obvious preference for either side. Impression: No aspiration seen. Please see the speech pathology report for additional details and recommendations. Fluoroscopy dose: 3.19 mGy (Cumulative air kerma) Jasmeet Lynch RPA/LORENA performed this under my direct supervision. .
[2018-01-19] MEDS: PIPERACILLIN/TAZOBACTAM 3.375 GM in NS 50 ML IV SCH ×4 (04:10→21:48)
[2018-01-19] MEDS: LORATADINE 10 MG TABLET PO SCH (05:53)
[2018-01-19] MEDS: ENOXAPARIN 40 MG/0.4 ML INJECTION SQ SCH (08:31)
[2018-01-19] MEDS: CITALOPRAM 10 MG TABLET PO SCH (08:31)
[2018-01-19] MEDS: ASPIRIN *EC* 81 MG TABLET PO SCH (08:32)
[2018-01-19] MEDS: GUAIFENESIN LA 600 MG TABLET PO SCH ×2 (08:32→21:49)
[2018-01-19] MEDS: PredniSONE 20 MG TABLET PO SCH (08:32)
[2018-01-19] MEDS: LISINOPRIL 10 MG TABLET PO SCH (08:32)
--- NOTE | 2018-01-19 08:45 | Pharmacy Consult-Antibiotics ---
Pharmacy Consult-Vancomycin - Laboratory Information WBC 14.7 T/MM3 (4.5-11.0) H 01/19/18 07:04 BUN 17.0 MG/DL (9-20) 01/19/18 07:04 Creatinine 1.1 mg/dL (0.8-1.5) 01/19/18 07:04 Procalcitonin 1.63 NG/ML 01/18/18 04:59 Vancomycin Trough 17.68 ug/mL (15-20) 01/19/18 07:04 - Consult Information VANCOMYCIN CONSULT: Vancomycin Trough = 17.68 mcg/ml. Today's SCr = 1.1 mg/dl. Will continue with Vancomycin 1250 mg IV q12hrs. The vanco trough is in the therapeutic range (15-20) Will continue to monitor and make adjustments accordingly. Thank you. Luz Maria Thompson, PharmD
--- NOTE | 2018-01-19 15:03 | Progress Note ---
- Date 01/19/18 Subjective: Mr. Jacobs reports ongoing dyspnea and cough. Cough may be slightly improved from admission but sputum is now blood-tinged at times. He denied pleuritic pain , chest pain, or palpitations. He has no nausea or vomiting and denies diarrhea or constipation. He is voiding frequently as is baseline for him but is without dysuria or hematuria. He denied lightheadedness, fevers, or pain. Objective Vital signs: Temperature 97.8 F 01/19/18 08:00 Pulse Rate 65 01/19/18 11:43 Respiratory Rate 18 01/19/18 11:43 Blood Pressure 131/70 01/19/18 11:43 Pulse Oximetry 96-2 L 01/19/18 11:43 NAD, alert Conjunctiva clear, oropharynx clear, excoriations on nose-appear chronic Respirations nonlabored, good airflow, faint expiratory wheezing posteriorly, crackles at the right base posteriorly; anterior lung ta clear Regular cardiac rhythm, S1-S2 Abdomen soft, nontender, obese, bowel sounds present Trace bilateral lower extremity edema Minor right ptosis, MAEW Skin without rash Height/Weight/BMI: Height 1.7 m Weight 101.2 kg Body Mass Index 35.3 Results - Labs CBC & Chem 7: 01/19/18 07:04 01/19/18 07:04 Microbiology Results: Microbiology 01/19/18 09:06 Sputum, Expectorated Gram Stain -rare WBCs, rare epithelial cells, few gram-positive cocci 01/19/18 09:06 Sputum, Expectorated Sputum Culture - Preliminary Culture Initiated - Results Pending Blood cultures 2 negative after 2 days - Imaging and Cardiology Venous US Status: image reviewed by me (negative for dvt) Assessment and Plan (1) HCAP (healthcare-associated pneumonia) Current visit: Yes Status: Acute (2) Sepsis Current visit: Yes Status: Acute (3) COPD (chronic obstructive pulmonary disease) Problem details: With exacerbation Current visit: Yes Status: Chronic Assessment and Plan: Assessment Sepsis secondary to pneumonia as indicated by: tachycardia, tachypnea, leukocytosis RLL Pneumonia, present on admission COPD exacerbation, present on admission Chronic hypoxic respiratory failure Dementia HTN Plan - Continue antibiotics (zosyn and vancomycin) - started 01/17/18 (was initially on Levaquin as well). Given persistent leukocytosis will continue IV antibiotics at this time. Blood cultures negative to date, sputum culture pending but preliminary results nonrevealing. Continue prednisone 40mg daily for pulmonary inflammation and COPD exacerbation. Continue DuoNeb, albuterol and mucinex for cough/dyspnea. Add Tussionex for cough control at bedtime. Repeat chest x-ray in a.m. Continue oxygen as needed to maintain sats >90. Home baseline 2-3L. Blood pressure stable. Modified barium swallow yesterday without evidence of aspiration; speech recommended chin tuck with thin liquids and will continue to assess swallow. Venous Dopplers without evidence of DVT. Discussed with nursing. DVT Prophylaxis: Lovenox Resuscitation Status: Full Code - Physician Narrative Narrative: Date: 01/19/18 Time: 1459 Hospital Course Summary Disclaimer: The visit summary below is not to be considered part of the above Progress Note. Hospital Course: 01/17/18 Patient admitted with sepsis due to pneumonia, triple antibiotics initiated with Levaquin, vancomycin, and Zosyn. Later in the day Levaquin discontinued. Obtain sputum culture in addition to blood cultures. Repeat CXR Trend lactate Begin steroids orally. RT consult Breathing treatments Continue oxygen as needed to maintain sats >90 Monitor BP closely, may need to hold lisinopril Speech therapy consult to rule out concerns for aspiration 01/18/18 Continue antibiotics (levaquin, zosyn and vancomycin) - started 01/17/18. Blood cultures negative x 1 day. De-escalate antibiotics as able. Obtain sputum culture as able. Lactate trended down (2.8, 2.0, 0.9). Continue prednisone 40mg daily for pulmonary inflammation and COPD exacerbation. Continue DuoNeb, albuterol and mucinex for cough/dyspnea. Continue oxygen as needed to maintain sats >90. Home baseline 2-3L. Continue to monitor blood pressure closely. Speech recommended modified barium swallow to further assess for dysphagia - pending. Obtain doppler of left lower extremity due to increased swelling/pain - pending. Recheck labs in AM to monitor blood counts, electrolytes and renal function. Lovenox initiated for DVT prophylaxis as well as SCDs. 01/19/18 Continue antibiotics (zosyn and vancomycin) - started 01/17/18 (was initially on Levaquin as well). Given persistent leukocytosis will continue IV antibiotics at this time. Blood cultures negative to date, sputum culture pending but preliminary results nonrevealing. Continue prednisone 40mg daily for pulmonary inflammation and COPD exacerbation. Continue DuoNeb, albuterol and mucinex for cough/dyspnea. Add Tussionex for cough control at bedtime. Repeat chest x-ray in a.m. Venous Doppler negative for DVT; modified barium swallow without evidence of aspiration.
[2018-01-19] MEDS: NS FLUSH BAG 500ml IV PRN (21:48)
[2018-01-19] MEDS: HYDROCODONE/CHLORPHENIRAMINE ER ORAL LIQ 5ml PO SCH (21:49)
[2018-01-20] MEDS: SALINE FLUSH 10ml SYRINGE IVF PRN ×2 (04:23→16:28)
[2018-01-20] MEDS: PIPERACILLIN/TAZOBACTAM 3.375 GM in NS 50 ML IV SCH ×4 (04:23→21:21)
[2018-01-20] MEDS: LORATADINE 10 MG TABLET PO SCH (05:49)
--- NOTE | 2018-01-20 07:53 | Pharmacy Consult-Antibiotics ---
Pharmacy Consult-Vancomycin - Laboratory Information WBC 11.9 T/MM3 (4.5-11.0) H 01/20/18 04:42 BUN 17.0 MG/DL (9-20) 01/19/18 07:04 Creatinine 1.1 mg/dL (0.8-1.5) 01/19/18 07:04 Procalcitonin 1.63 NG/ML 01/18/18 04:59 Vancomycin Trough 17.68 ug/mL (15-20) 01/19/18 07:04 - Consult Information VANCOMYCIN CONSULT: DAY 5 Previous Vancomycin Trough = 17.68 mcg/ml. WBC's have decreased to 11.9 Antibiotics: Zosyn and Vancomycin Continue Vancomycin 1250 mg IV q12hrs Vancomcyin Trough for tomorrow morning. Will continue to monitor and make adjustments accordingly. Thank you. Luz Maria Thompson, PharmD
[2018-01-20] MEDS: ENOXAPARIN 40 MG/0.4 ML INJECTION SQ SCH (09:06)
[2018-01-20] MEDS: CITALOPRAM 10 MG TABLET PO SCH (09:06)
[2018-01-20] MEDS: LISINOPRIL 10 MG TABLET PO SCH (09:07)
[2018-01-20] MEDS: ASPIRIN *EC* 81 MG TABLET PO SCH (09:07)
[2018-01-20] MEDS: GUAIFENESIN LA 600 MG TABLET PO SCH ×2 (09:07→21:21)
[2018-01-20] MEDS: PredniSONE 20 MG TABLET PO SCH (09:07)
--- NOTE | 2018-01-20 13:23 | Progress Note ---
- Date 01/20/18 Subjective: Mr. Jacobs reports that he feels better. He is on 1 L supplemental oxygen currently and reports he is not on home oxygen (nursing reports patient is typically on 2-3 L at home and has been chronically). Patient is able to to me that he has an oxygen concentrator in his room but indicates that he doesn't use it. He denies dyspnea and reports cough is improved with only minor sputum production present today. He denied chest pain, nausea, vomiting, or diarrhea. He had a bowel movement earlier today; he denies pain, lightheadedness, or fever. He did not seem to recall need to tuck chin when drinking liquids as previously advised speech therapy. Objective Vital signs: Temperature 97.5 F 01/20/18 00:30 Pulse Rate 52 L 01/20/18 00:30 Respiratory Rate 01/20/18 00:30 Blood Pressure 136/78 01/20/18 00:30 Pulse Oximetry 95 -1 L 01/20/18 08:15 I/O 2930/2076 NAD, alert, pleasant Conjunctiva clear, sclera anicteric Respirations nonlabored, good airflow, crackles at the right base; no wheezing present Regular rhythm, S1-S2 Abdomen soft, nontender, bowel sounds present Trace edema at the ankles Excoriations on the nose unchanged MAEW Height/Weight/BMI: Height 1.7 m Weight 101.2 kg Body Mass Index 35.3 Results - Labs CBC & Chem 7: 01/20/18 04:42 01/19/18 07:04 Microbiology Results: Microbiology 01/19/18 09:06 Sputum, Expectorated Gram Stain -rare white cells, few gram- positive cocci 01/19/18 09:06 Sputum, Expectorated Sputum Culture -no reportable results - Imaging and Cardiology Chest x-ray Status: image reviewed by me (decrease infiltrate on the right by my review) Assessment and Plan (1) HCAP (healthcare-associated pneumonia) Current visit: Yes Status: Acute (2) Sepsis Current visit: Yes Status: Acute (3) COPD (chronic obstructive pulmonary disease) Problem details: With exacerbation Current visit: Yes Status: Chronic Assessment and Plan: Assessment Sepsis secondary to pneumonia as indicated by: tachycardia, tachypnea, leukocytosis RLL Pneumonia, present on admission COPD exacerbation, present on admission Chronic hypoxic respiratory failure Dementia HTN Plan - Sputum culture unremarkable, blood cultures negative since 01/16. Discontinue vancomycin, continue Zosyn overnight with plans to convert to Augmentin tomorrow morning. Anticipate discharge home tomorrow with continuation of supplemental oxygen which appears to be baseline. White count continues to improve as does chest x-ray. Day 4/ prednisone 40 mg daily, decreased to 20 mg daily starting 01/22 for additional 5 days. Continue DuoNeb, albuterol and mucinex for cough/dyspnea. Nocturnal Tussionex for cough control at bedtime. Continue oxygen as needed to maintain sats >90. Home baseline 2-3L. Blood pressure stable. Discussed with nursing. DVT Prophylaxis: Lovenox Resuscitation Status: Full Code - Physician Narrative Narrative: Date: 01/20/18 Time: 1320 Hospital Course Summary Disclaimer: The visit summary below is not to be considered part of the above Progress Note. Hospital Course: 01/17/18 Patient admitted with sepsis due to pneumonia, triple antibiotics initiated with Levaquin, vancomycin, and Zosyn. Later in the day Levaquin discontinued. Obtain sputum culture in addition to blood cultures. Repeat CXR Trend lactate Begin steroids orally. RT consult Breathing treatments Continue oxygen as needed to maintain sats >90 Monitor BP closely, may need to hold lisinopril Speech therapy consult to rule out concerns for aspiration 01/18/18 Continue antibiotics (levaquin, zosyn and vancomycin) - started 01/17/18. Blood cultures negative x 1 day. De-escalate antibiotics as able. Obtain sputum culture as able. Lactate trended down (2.8, 2.0, 0.9). Continue prednisone 40mg daily for pulmonary inflammation and COPD exacerbation. Continue DuoNeb, albuterol and mucinex for cough/dyspnea. Continue oxygen as needed to maintain sats >90. Home baseline 2-3L. Continue to monitor blood pressure closely. Speech recommended modified barium swallow to further assess for dysphagia - pending. Obtain doppler of left lower extremity due to increased swelling/pain - pending. Recheck labs in AM to monitor blood counts, electrolytes and renal function. Lovenox initiated for DVT prophylaxis as well as SCDs. 01/19/18 Continue antibiotics (zosyn and vancomycin) - started 01/17/18 (was initially on Levaquin as well). Given persistent leukocytosis will continue IV antibiotics at this time. Blood cultures negative to date, sputum culture pending but preliminary results nonrevealing. Continue prednisone 40mg daily for pulmonary inflammation and COPD exacerbation. Continue DuoNeb, albuterol and mucinex for cough/dyspnea. Add Tussionex for cough control at bedtime. Repeat chest x-ray in a.m. Venous Doppler negative for DVT; modified barium swallow without evidence of aspiration. 01/20/18 Sputum culture unremarkable, blood cultures negative since 01/16. Discontinue vancomycin, continue Zosyn overnight with plans to convert to Augmentin tomorrow morning. Anticipate discharge home tomorrow with continuation of supplemental oxygen which appears to be baseline. White count continues to improve as does chest x-ray. Day 4/5 prednisone; decreased to 20 mg daily starting 01/22 for additional 5 days.
--- NOTE | 2018-01-20 16:48 | XRay Report ---
INDICATION: pneumonia/hypoxia PROCEDURE: CHEST 2-VIEWS UPRIGHT (PA & LAT) Encounter: Initial COMPARISON: January 17, 2018 FINDINGS: Airspace consolidation in the right lower lobe is slightly improved. No new areas of airspace disease. No pneumothorax or pleural effusion. Heart size and mediastinal contours are stable. Pulmonary vascularity is normal. Impression: Improving right lower lobe pneumonia. .
[2018-01-20] MEDS: HYDROCODONE/CHLORPHENIRAMINE ER ORAL LIQ 5ml PO SCH (21:21)
[2018-01-20 23:43] VITALS: RESP 18
[2018-01-21] MEDS: PIPERACILLIN/TAZOBACTAM 3.375 GM in NS 50 ML IV SCH (02:41)
[2018-01-21] MEDS: LORATADINE 10 MG TABLET PO SCH (05:55)
[2018-01-21 07:37] VITALS: BP 160/88; PULSE 56; TEMP 97.7; O2SAT 93
[2018-01-21] MEDS ORDERED: AMOX/CLAV 875 MG/125 MG TABLET PO SCH (09:00)
[2018-01-21] MEDS: CITALOPRAM 10 MG TABLET PO SCH (09:52)
[2018-01-21] MEDS: ENOXAPARIN 40 MG/0.4 ML INJECTION SQ SCH (09:52)
[2018-01-21] MEDS: PredniSONE 20 MG TABLET PO SCH (09:53)
[2018-01-21] MEDS: LISINOPRIL 10 MG TABLET PO SCH (09:53)
[2018-01-21] MEDS: ASPIRIN *EC* 81 MG TABLET PO SCH (09:53)
[2018-01-21] MEDS: GUAIFENESIN LA 600 MG TABLET PO SCH (09:56)
--- NOTE | 2018-01-21 10:13 | Discharge Summary ---
Discharge Information Date of admission: 01/16/18 23:34 Anticipated date of discharge: 01/21/18 Attending Physician: Amanda Diallo MD Primary care physician: Obi Kapoor MD Consults: None - Discharge Diagnosis (1) HCAP (healthcare-associated pneumonia) Status: Acute (2) Sepsis Status: Acute (3) COPD (chronic obstructive pulmonary disease) Status: Chronic Sepsis secondary to pneumonia as indicated by: tachycardia, tachypnea, leukocytosis RLL Pneumonia, present on admission COPD exacerbation, present on admission Chronic hypoxic respiratory failure Dementia HTN - Laboratory Labs: Discharge labs 01/21/18 01/21/18 04:50 04:50 WBC 12.1 H RBC 4.15 L Hgb 12.6 L Hct 37.8 L MCV 91.1 MCH 30.4 MCHC 33.3 Plt Count 334 Sodium 141 Potassium 4.7 Chloride 104 Carbon Dioxide 29 BUN 20.0 Creatinine 1.0 Glucose 106 Calcium 8.9 Admission labs 01/16/18 01/16/18 20:52 20:52 WBC 18.1 H RBC 4.27 L Hgb 13.3 L Hct 39.3 L MCV 92.0 MCH 31.1 Plt Count 317 Sodium 135 Potassium 4.8 Chloride 97 L Carbon Dioxide 24 BUN 16.0 Creatinine 1.3 BUN/Creatinine Ratio 12 Glucose 130 H Calcium 9.4 AST 21 ALT 15 Plasma Lactate 2.4 H Neg respiratory viral panel. - Microbiology Microbiology 01/19/18 09:06 Sputum, Expectorated Gram Stain - Final 01/19/18 09:06 Sputum, Expectorated Sputum Culture - Preliminary Staphylococcus aureus Normal Resp Patsy incl. Yeast Blood cultures no growth after 4 days. - Radiology Radiology: Date of Exam: 01/20/18 INDICATION: pneumonia/hypoxia PROCEDURE: CHEST 2-VIEWS UPRIGHT (PA & LAT) FINDINGS: Airspace consolidation in the right lower lobe is slightly improved. No new areas of airspace disease. No pneumothorax or pleural effusion. Heart size and mediastinal contours are stable. Pulmonary vascularity is normal. Impression: Improving right lower lobe pneumonia. Date of Exam: 01/16/18 INDICATION: soa, fever PROCEDURE: CHEST 2-VIEWS UPRIGHT (PA & LAT) FINDINGS: Hazy airspace opacities in both lower lobes, right greater than left. Upper lung ta are clear. No pleural effusion or pneumothorax. Heart size and mediastinal contours are stable. Pulmonary vascularity is normal. Impression: Lower lobe airspace disease could represent atelectasis or pneumonia. Date of Exam: 01/18/18 Indication: leg swelling/pain PROCEDURE: US venous doppler LE LT: Findings: There is no evidence for acute deep venous thrombosis in the left thigh. Specifically, serial graded compression was performed from the inguinal ligament to the popliteal bifurcation, on the left thigh, demonstrating appropriate compressibility of the deep venous system. In addition, color and pulsed Doppler demonstrate appropriate spontaneous flow, variation with respiration, and augmentation with calf compression. At the ankle, normal flow is identified in the posterior tibial veins; these vessels are also normal in caliber. Impression: No evidence of acute DVT in the left lower limb. = = = = = = = = = = = = = = = = = = = = = = = = = = = = = = = = = = = = = = = = = = = Date of Exam: 01/18/18 Indication:dysphagia Procedure:FL barium swallow modified Videofluoroscopy was performed in conjunction with a accounts receivable representative from speech pathology and a separate report and recommendations will be provided. Varying gradations of barium from thin to solid were administered. There was no aspiration noted with any of the consistencies. On the AP view the bolus showed no obvious preference for either side. Impression: No aspiration seen. Please see the speech pathology report for additional details and recommendations. History of Present Illness HPI: Patient is a 68 year old male with history of COPD who presented to ED with reports of cough and shortness of breath with hypoxia. He has a history of dementia and history is difficult to obtain from patient. He does know that he lives at [facility] and that he felt ill. He states he felt very run down and like he didn't have any energy. History is largely obtained from chart as patient does not recall why exactly he is here other than not feeling well. Objective Vital signs: Temperature 97.7 F 01/21/18 07:36 Pulse Rate 56 L 01/21/18 07:36 Respiratory Rate 18 01/21/18 07:36 Blood Pressure 160/88 H 01/21/18 07:36 Pulse Oximetry 93 01/21/18 07:36 Height/Weight/BMI: Height 1.7 m Weight 101.321 kg Body Mass Index 35.3 - Constitutional Present: no acute distress, well nourished, well developed - Routine HEENT Exam Head: Present: normocephalic, atraumatic - Routine Respiratory Exam Present: CTA bilaterally. Absent: wheezes - Routine Cardiovascular Exam Present: RRR, no murmur - Routine Abdominal Exam Present: soft, non distended, non tender - Routine Extremities Exam Present: no edema, normal capillary refill - Routine Skin Exam Present: dry, warm - Routine Neurological Exam Present: alert, normal speech - Routine Lymphatic Exam Lymphatic: Absent: adenopathy - Routine Psychiatric Exam Present: normal affect, cooperative Hospital Course This is a general summary of the patient's hospital course. For more details refer to the complete medical record. Hospital course: 01/17/18 Patient admitted with sepsis due to pneumonia, triple antibiotics initiated with Levaquin, vancomycin, and Zosyn. Later in the day Levaquin discontinued. Obtain sputum culture in addition to blood cultures. Begin steroids orally. RT consult, Breathing treatments Continue oxygen as needed to maintain sats >90 Monitor BP closely, may need to hold lisinopril Speech therapy consult to rule out concerns for aspiration 01/18/18 Continue antibiotics (levaquin, zosyn and vancomycin) - started 01/17/18. Blood cultures negative x 1 day. De-escalate antibiotics as able. Obtain sputum culture as able. Lactate trended down (2.8, 2.0, 0.9). Continue prednisone 40mg daily for pulmonary inflammation and COPD exacerbation. Continue DuoNeb, albuterol and mucinex for cough/dyspnea. Continue oxygen as needed to maintain sats >90. Home baseline 2-3L. Continue to monitor blood pressure closely. Speech recommended modified barium swallow to further assess for dysphagia - pending. Obtain doppler of left lower extremity due to increased swelling/pain - pending. Recheck labs in AM to monitor blood counts, electrolytes and renal function. Lovenox initiated for DVT prophylaxis as well as SCDs. 01/19/18 Continue antibiotics (zosyn and vancomycin) - started 01/17/18 (was initially on Levaquin as well). Given persistent leukocytosis will continue IV antibiotics at this time. Continue prednisone 40mg daily for pulmonary inflammation and COPD exacerbation. Continue DuoNeb, albuterol and mucinex for cough/dyspnea. Add Tussionex for cough control at bedtime. Venous Doppler negative for DVT; modified barium swallow without evidence of aspiration. 01/20/18 Sputum culture unremarkable, blood cultures negative since 01/16. Discontinue vancomycin, continue Zosyn overnight with plans to convert to Augmentin tomorrow morning. White count continues to improve as does chest x-ray. 01/21/18 Discharge back to assisted living at [facility] on home supplemental O2. Neg blood cultures to date. Sputum + staph (final culture pending) Leukocytosis continues to improve. Fifth day of prednisone 40mg given today. Continue 20mg daily starting tomorrow x 5 days. (01/22/18-01/26/18) Continue Augmentin 01/25/18. Start doxy for coverage of staph found on prelim sputum culture. 100mg BID x 5 days (started today.) PT/OT evaluated pt and don't believe he will need senior living services. Time spent with patient: discharge greater than 30 minutes Resuscitation Status: Full Code Discharge Plan - Discharge Disposition Discharge Date: 01/21/18 Disposition: 04 To [facility] Home/Facility *Condition: Stable Reason For Visit (Visit label in EMR): pneumonia - Discharge Medications *Discharge Medications: New Doxycycline [Vibramycin] 100 mg PO BIDWM 5 Days tab Hydrocodone/APAP 5/325 [[place] 5/325] 1 tab PO Q6H PRN #25 tab PRN Reason: Pain PredniSONE [Deltasone 20 mg] 20 mg PO WB #5 tab Senna + Docusate [Senna Plus Tablet] 1 tab PO BID PRN tab PRN Reason: Constipation Amoxicillin/Potassium Clav [Amox-Clav 875-125 mg Tablet] 875 mg PO BIDWM 5 Days tab Continue Albuterol HFA Inhaler [Ventolin Hfa 90 mcg/actuation] 2 puff ORAL INH Q4HR PRN PRN Reason: Shortness Of Air/Wheezing Loratadine [Claritin] 10 mg PO DAILY Lisinopril [Prinivil] 10 mg PO DAILY Aspirin [[place] Aspirin] 81 mg PO DAILY Calcium Carbonate [Calcium] 1 tab PO BID Eucerin Cream [Eucerin] 1 applicatio TP BID PRN PRN Reason: Prn Orders Acetaminophen [Tylenol] 1,000 mg PO Q6HR PRN PRN Reason: Pain Albuterol Sulfate 1 vial AEROSOL Q4H PRN #0 PRN Reason: Shortness Of Air Citalopram [Celexa] 30 mg PO DAILY Propylene Glycol [Lubricant Eye Drops] 1 drop EACH EYE Q4HR PRN PRN Reason: Dry Eyes Changed Fluticasone/Salmeterol 250/50 [Advair 250-50 Diskus] 1 puff INH BID #1 guaiFENesin [Mucinex] 600 mg PO BID PRN #30 PRN Reason: thick mucous Discontinued Acetaminophen [Pain Reliever] 500 mg PO Q6HR PRN PRN Reason: Pain - Discharge Packet/Instructions *Diet: Regular diet. Remind patient to use a chin tuck when drinking liquids. *Activity: As tolerated *Pain Management/Treatment: Tylenol as needed *Wound Care: n/a Additional Instructions: Augmentin and Doxycycline to be continued through . Prednisone 20mg daily to start 01/22/18 through 01/26/18 *Expected Signs/Symptoms: Continued improvement *Notify Physician if: you develop fever or increasing shortness of breath *During Business Hours Contact: your nurse at [facility] *After Business Hours Contact: your nurse at [facility] *Pending Lab/Results: Follow up w/Provider (final sputum culture) - Referrals/Follow Up *Referrals/Follow Up: Obi Kapoor MD [Family Provider] - 1 Week - Patient Handouts Patient Handouts: Pneumonia (GEN) - Dismissal Complete Discharge Instructions are:: Complete Physician Narrative - Narrative Physician: Amanda Diallo MD Attestation Narrative: Date: 01/21/18 Time: 6710 I have independently evaluated and examined this patient. I reviewed the chart, the patient's history, and the [employer]PA's documented findings as above. We discussed and formulated the assessment and plan as above with additions as below: Mr. Jacobs reports he feels much better today and has no cough. He ambulated with physical therapy without difficulty and is anxious to discharge home at this time. Respirations are nonlabored with good airflow, breath sounds are clear. Patient is alert and cooperative. Oxygen saturation 93% on 1 L. Scant growth staph aureus in sputum culture; doxycycline added for 5 days in addition to prior course of vancomycin. Stable for discharge; to follow up with Dr. Kapoor as described.
--- NOTE | 2018-01-21 11:31 | Extended Care Facility Orders ---
<Asya Boyer - Last Filed: 01/21/18 11:27> Admission Orders Admit to:: [facility] Allergies/Adverse Reactions: Allergies aspirin Allergy (Unknown, Verified 01/16/18 20:05) Admitting Diagnosis: pneumonia Admitting Physician: Amanda Diallo MD Attending Physician: Amanda Diallo MD Code Status: Full Code Anticiapted Length of Stay: 30 days or less Rehab Potential: good Rehab Prognosis: good Diet: 01/16/18 Breakfast Regular Diet [DIET] Diet Modifications: May use Facility Protocol or Standing Orders: Yes May have flu vaccine: Yes - Additional Information In Event of Arrest: Start CPR,call 911,send patient to the ER Resident is Aware of Diagnosis: Yes Referrals: Obi Kapoor MD [Family Provider] - 1 Week Additional Orders: Doxycycline and Augmentin should continue through 01/25/18. Prednisone 20mg daily should start 01/22 through 01/26 <Amanda Diallo - Last Filed: 01/21/18 11:36> Admission Orders Admitting Diagnosis: pneumonia Admitting Physician: Amanda Diallo MD Attending Physician: Amanda Diallo MD Code Status: Full Code Diet: Regular diet, thin liquids Longterm Certification: I certify that SNF services are required to be given on an Inpatient basis because of the patients need for halfway care on a continuing basis for the condition(s) for which he/she received inpatient hospital services prior to his/her transfer to the SNF. SNF inpatient care is necessary for the following reasons Indication for Longterm: Not Applicable
[2018-01-22] MEDS ORDERED: PredniSONE 20 MG TABLET PO SCH (08:00)
== END 2018-01-21 13:15 | DRG 871 ==
LOC: ED 19:47 → SUATTDRO 23:34 → MED 23:34
PROVIDERS: ADMIT Internal Medicine; ATTEND Internal Medicine